=== PATIENT | male | born 1990 | race African-American/Black ===

== ENCOUNTER 2017-05-08 22:42 | Emergency (ER) | payer OTHER ==
[~2017-05-08] VITALS: Ht 177.8 cm; Wt 83.9 kg
[2017-05-08 22:45] VITALS: BP 129/78
== END 2017-05-08 23:15 | disposition home or self-care (01) ==
LOC: ER 22:46
DX: H10.9 Unspecified conjunctivitis (principal)
CPT/HCPCS: 99283; A4606; Z7610

== ENCOUNTER 2017-10-22 11:54 | Emergency (ER) | payer BC, OTHER ==
[~2017-10-22] VITALS: Ht 177.8 cm; Wt 83.9 kg
[2017-10-22 12:20] VITALS: BP 138/90
[2017-10-22 12:52] LABS: APPEARANCE,URINE Clear (CLEAR); BILIRUBIN,URINE Negative (NEGATIVE); BLOOD, URINE Negative Ery/uL (NEGATIVE); COLOR,URINE Yellow (YELLOW); KETONES,URINE Negative (NEGATIVE); LEUKOCYTE ESTERASE ,URINE Negative (NEGATIVE); NITRITE, URINE Negative (NEGATIVE); PH,URINE 7.5 (5.0-8.0); PROTEIN,URINE Negative (NEGATIVE); UGLUCOSE Negative (NEGATIVE); UROBILINOGEN,URINE 0.2 EU/dL (0.2)
== END 2017-10-22 13:19 | disposition home or self-care (01) ==
LOC: ER 11:56
DX: R10.9 Unspecified abdominal pain (principal)
CPT/HCPCS: 81001; 99283; A4606; Z7610; 81000-TC

== ENCOUNTER 2022-07-24 20:17 | Emergency (ER) | payer OTHER ==
[~2022-07-24] VITALS: Ht 177.8 cm; Wt 94.3 kg
--- NOTE | 2022-07-24 20:51 | NUR ---
RAPID STREP COLLECTED AND SENT TO LAB
[2022-07-24 20:54] VITALS: BP 135/85
--- NOTE | 2022-07-24 22:27 | NUR ---
Patient discharged to home in stable condition. PATIENT DID NOT WANT TO WAIT FOR THE D/C PAPERS
== END 2022-07-24 22:00 | disposition home or self-care (01) ==
LOC: ER 20:25
DX: J35.8 Other chronic diseases of tonsils and adenoids (principal)
CPT/HCPCS: 86403-TC; 87070-TC

== ENCOUNTER 2023-06-14 10:12 | Emergency (ER) | payer OTHER ==
[~2023-06-14] VITALS: Ht 177.8 cm; Wt 90.7 kg
[2023-06-14 10:17] VITALS: BP 133/92; TEMP 98.3
[2023-06-14] MEDS ORDERED: AMOX-427 PO (10:22)
[2023-06-14 10:30] VITALS: O2SAT 100
== END 2023-06-14 10:31 | disposition home or self-care (01) ==
LOC: ER 10:23
DX: J02.9 Acute pharyngitis, unspecified (principal); Z79.899 Other long term (current) drug therapy; Z60.2 Problems related to living alone
CPT/HCPCS: 86403-TC